=== PATIENT | male | born 1965 | race Caucasian/White ===

== ENCOUNTER 2017-02-01 14:52 | Outpatient (RCR) | payer OTHER ==
[~2017-02-01 14:52] MED LIST: ASPIRIN81 MG PO; CLINDAMYCIN HC150 MG PO; IBUPROFEN400 MG PO; NORCO 7.5-3251 EACH PO; TYLENOL WITH C1 EACH PO; XARELTO10 MG PO
== END 2017-02-04 ==
LOC: PT 14:52
PROVIDERS: ATTEND Specialist
DX: S82.292A Other fracture of shaft of left tibia, initial encounter for closed fracture (principal); M62.81 Muscle weakness (generalized)
CPT/HCPCS: 97162; G8978; G8979

== ENCOUNTER → 2017-03-07 | Outpatient (RCR) | payer OTHER | LOC: PT 02-08 15:22 | PROVIDERS: ATTEND Specialist | DX: S82.202A Unspecified fracture of shaft of left tibia, initial encounter for closed fracture (principal); M62.81 Muscle weakness (generalized) | CPT/HCPCS: 97110 ×13; 97139; 97140; G8978 ×2; G8979 ×2 ==

== ENCOUNTER 2017-04-02 14:54 | Outpatient (RCR) | payer OTHER | END 2017-04-04 | LOC: PT 14:54 | PROVIDERS: ATTEND Specialist | DX: S82.202A Unspecified fracture of shaft of left tibia, initial encounter for closed fracture (principal); M62.81 Muscle weakness (generalized) | CPT/HCPCS: 97110 ×10; G8978; G8979 ==

== ENCOUNTER 2017-04-16 06:56 | Outpatient (RCR) | payer OTHER | END 2017-05-05 | LOC: PT 06:56 | PROVIDERS: ATTEND Specialist | DX: Z47.89 Encounter for other orthopedic aftercare (principal); S83.232D Complex tear of medial meniscus, current injury, left knee, subsequent encounter; S82.832D Other fracture of upper and lower end of left fibula, subsequent encounter for closed fracture with routine healing | CPT/HCPCS: 97750; G8978; G8979; G8980 ==

== ENCOUNTER → 2017-05-22 | Outpatient (CLI) | payer OTHER ==
--- NOTE | 2017-05-22 11:25 | Diagnostic Imaging Report ---
CT scan of the LEFT Leg, WITHOUT injected contrast. TECHNIQUE: Standard departmental protocols were used. Sagittal and coronal reformatted images were obtained. HISTORY: Displaced oblique fracture, shaft of left tibia COMPARISON: left tibia and fibula radiographs June 12, 2016 FINDINGS: Bones: Status post ORIF of the tibia via an intramedullary joycelyn with proximal and distal interlocking screws. The distal tibial fracture appears to be in the late stages of healing. Osseous bridging across the majority of the fracture, at the superior aspect a small portion of focal incomplete osseous bridging (series 4 image 116), this may be the chronic appearance of the fracture deformity. The proximal fibular fracture is healed. Soft Tissues: Appear unremarkable. IMPRESSION: 1. Distal tibial fracture in the late stages of healing, no evidence of hardware loosening or failure. 2. Healed proximal fibular fracture. Signed by: Dr. Torres Petit D.O., M.M.M. on 05/22/2017 11:21 AM
== END ==
LOC: CT 10:34
PROVIDERS: ATTEND Specialist
DX: S82.232D Displaced oblique fracture of shaft of left tibia, subsequent encounter for closed fracture with routine healing (principal)